=== PATIENT | male | born 1955 | race Caucasian/White ===

== ENCOUNTER 2019-03-19 11:55 | Inpatient (IN) | payer BC ==
[~2019-03-19] VITALS: Ht 175.3 cm; Wt 122.7 kg
[2019-04-03] VITALS (13 sets, daily range): BP systolic 114–144; BP diastolic 64–83; PULSE 86–102; TEMP 97.9–98.8
[2019-04-03] MEDS ORDERED: COZAAR 50MG50 MG/TAB PO (06:44)
[2019-04-03] MEDS ORDERED: ASPIRIN 81M81 MG/TA2 PO (06:44)
[2019-04-03] MEDS ORDERED: ZOCOR 80MG80 MG PO (06:44)
--- NOTE | 2019-04-03 11:05 | NUR ---
Patient up from OR. Sleepy, arouses to voice and touch. Spouse at bedside. Lap sites x 5 with bandaids, CDI. Low transverse with gauze is CDI. Patient denies pain at this time. Tolerating liquids without nausea. Denies further needs at this time. Will continue to monitor.
--- NOTE | 2019-04-03 18:33 | NUR ---
Patient doing well today. Has been up to recliner most of the afternoon. Tolerating oral intake without nausea. Denies pain at this time. remains at bedside. Denies further needs at this time.
--- NOTE | 2019-04-03 20:15 | NUR ---
Patient up in chair at bedside, wants to take a walk. Supervised ambulation in hallway around the surgical unit and down to medical unit and back to bed. Gait steady. Has sanderson to BSD with yellow urine noted. Has IV SL to left forearm without redness or swelling. Denies pain. Has lap sites x4 with bandaids and one small transverse incision to lower abdomen. Sites are dry. Has not passed any gas at this time.
[2019-04-04 04:00] VITALS: BP 131/76; PULSE 77; TEMP 97.5
[2019-04-04 05:52] LABS: BASO % 0.1 % (0.0-2.0); GRAN # 7.7 (1.4-6.5); GRAN % 79.7 % (42.2-75.2); HEMATOCRIT 38.4 % (42.0-52.0); HEMOGLOBIN 12.7 g/dl (13.5-18.0); LYMPH % 10.1 % (20.0-51.0); MEAN CELL VOLUME 93 fl (80.0-100.0); MEAN CORPUSCULAR HEMOGLOBIN 31 pg (27.0-31.0); MEAN CORPUSCULAR HGB CONC 33 g/dl (33.0-37.0); MEAN PLATELET VOLUME 9.5 fl (7.4-10.4); MONO # 0.9 (0.1-0.6); MONO % 9.6 % (1.7-9.3); PLATELET COUNT 167 K/mm3 (130-400); RED BLOOD COUNT 4.15 M/mm3 (4.20-5.60); REDCELL DISTRIBUTION WIDTH-CV 13.2 % (11.5-14.5)
--- NOTE | 2019-04-04 06:00 | NUR ---
Patient reports resting well, no complaints of pain refers discomfort as "soreness". Chen with good urine output this shift. Has not passed gas at this time.
[2019-04-04 06:02] LABS: CALCIUM 9.1 mg/dL (8.4-10.2); CREATININE, serum 1.22 (0.66-1.25); POTASSIUM 4.6 mmol/L (3.4-5.0)
[2019-04-04 08:26] VITALS: BP 140/80; PULSE 74; TEMP 97.8
--- NOTE | 2019-04-04 08:40 | NUR ---
Patient in bed resting. Alert and oriented x 3. Shift assessment complete. Chen to dependent drainage with clear yellow urine present in bag. Lap sites with bandaids are CDI. Low transverse with gauze also CDI. Denies pain at this time. Denies further needs at this time
--- NOTE | 2019-04-04 09:55 | NUR ---
Initial visit; Patient thanked Roving Technician for looking in on him and offering God's blessings.
--- NOTE | 2019-04-04 10:41 | NUR ---
Discontinued sanderson catheter; Aspirated 10 ml of fluid from balloon. Tolerated procedure well. Denies further needs at this time
--- NOTE | 2019-04-04 10:43 | NUR ---
Patient up ambulating in halls independently. Steady gait. Voiding without difficulty.
[2019-04-04 11:50] VITALS: BP 151/90; PULSE 80; TEMP 97.9
--- NOTE | 2019-04-04 15:11 | NUR ---
Patient states that he has had 4x bloody stools, patient flushed before able to visualize. Patient to call nursing staff if he has another bloody stool.
[2019-04-04 15:53] VITALS: BP 129/79; PULSE 83; TEMP 97.8
--- NOTE | 2019-04-04 16:08 | NUR ---
JUANITO met with the patient, patient's (Pamela), and a friend to discuss discharge plan. The patient lives in [place] with his . He reports independence with ADLs and does not have any DME. The patient's PCP is Dr. Krishan Nelson, but he will be retiring and the patient will be switched to Dr. Barr on April 11. He receives his medications at the [facility] and he reports no difficulties obtaining his meds. The patient does not have advanced directives in EMR and he was not interested in completing one at this time. The patient plans to return home with his upon discharge. No additional needs at this time.
--- NOTE | 2019-04-04 18:33 | NUR ---
Patient has done well today. Independent in room. Has been up ambulating in halls throughout the day. States he has no longer had any bloody stools. Denies pain or further needs at this time. Will report off to hydrographical technical officer.
--- NOTE | 2019-04-04 19:14 | NUR ---
Contacted Dr. Marino Patient states he has had 6 bloody stools today. Nurse finally able to visualize most recent BM. Appears dark red blood no BM. Patient remains asymptomatic. VSS. Per Dr. Marino check H&H in morning. no new orders.
[2019-04-04 19:31] VITALS: BP 121/67; PULSE 84; TEMP 98.2
[2019-04-04 23:40] VITALS: BP 129/74; PULSE 83; TEMP 98.6
--- NOTE | 2019-04-05 00:46 | NUR ---
Patient educated to continue to allow staff to visualize bowel movements. Also educated on alerting staff if he started to feel light headed or dizzy. Blood pressure remains WNL. Denies any light headedness or dizziness. Patient had another large dark red bloody stool. Will continue to monitor patient.
[2019-04-05 04:35] VITALS: BP 121/75; PULSE 83; TEMP 98.2
--- NOTE | 2019-04-05 04:38 | NUR ---
Patient noted to have another large dark red liquid bowel movement. Blood pressure WNL. Denies dizziness or lightheadedness. Will continue to monitor.
[2019-04-05 05:34] LABS: HEMATOCRIT 33.7 % (42.0-52.0); HEMOGLOBIN 11.3 g/dl (13.5-18.0)
[2019-04-05 08:21] VITALS: BP 123/82; PULSE 72; TEMP 97.7
--- NOTE | 2019-04-05 10:30 | NUR ---
Patient has had 2 liquid dark red stools, there was few tiny clots noted in the last bowel movment. Patient denies pain and nausea. Encouraged patient to walk in the hallways today. He is eating and drinking without issues. His is at bedside. No other changes at this time. Call ruth ann love.
--- NOTE | 2019-04-05 11:43 | NUR ---
Initial visit; Patient thanked Head Screen Worker for offering encouragement and God's blessings.
[2019-04-05 13:06] VITALS: BP 119/73; PULSE 77; TEMP 98.1
[2019-04-05 16:06] LABS: HEMATOCRIT 33.6 % (42.0-52.0)
--- NOTE | 2019-04-05 16:30 | NUR ---
Patients HGB is back, no major changes noted. It went from 11.3 this morning to 11. Attempted to call Dr Marino as he requested, he did not answer. Left a voicemail to call back. No other changes at this time. Call light within reach. No other changes at this time. Call light within reach.
[2019-04-05 17:34] VITALS: BP 128/73; PULSE 79; TEMP 97.7
--- NOTE | 2019-04-05 18:30 | NUR ---
Patient is discharging home. Discharge instructions discussed with patient. No questions verbalized. INT discontinued. Explained he has a follow up appointment on Monday with Dr Marino. Explained to call the office if the bloody stools increase. Patient has not had any dark red stools since before noon. Copies of discharge instructions sent with patient. Belongings packed up and sent with patient. Explained he has a script for oxycodone to get filled and that he has to take it to the pharmacy to [facility]. Patient walked out via wheel chair by Sandra PERRY. is here to drive patient home.
== END 2019-04-05 18:30 | disposition home or self-care (01) | DRG 331 ==
LOC: SURG 04-03 05:37 → INPTSU 04-03 05:37 → SURG 04-03 07:30 → JCC 04-03 07:30 → SURG 04-03 11:31
PROVIDERS: ADMIT Surgery
PROC: 8E0W4CZ Robotic Assisted Procedure of Trunk Region, Percutaneous Endoscopic Approach (ICD-10-PCS; 2019-04-03)
PROC: 0DTF0ZZ Resection of Right Large Intestine, Open Approach (ICD-10-PCS; principal; 2019-04-03 07:30)
DX: D12.0 Benign neoplasm of cecum (principal); I25.2 Old myocardial infarction; I10 Essential (primary) hypertension; Z95.5 Presence of coronary angioplasty implant and graft; E66.9 Obesity, unspecified; E78.00 Pure hypercholesterolemia, unspecified; Z68.39 Body mass index [BMI] 39.0-39.9, adult
CPT/HCPCS: A4314; A9284; J0690; J1100; J1650; J2405; J2704; J7120

== ENCOUNTER → 2019-03-26 | Outpatient (CLI) | payer BC | LOC: COL.RAD 09:58 | DX: R91.1 Solitary pulmonary nodule (principal) ==

== ENCOUNTER → 2019-07-11 | Outpatient (CLI) | payer BC ==
[~2019-07-11] MED LIST: ASPIRIN 81M81 MG/TA2 PO; COZAAR 50MG50 MG/TAB PO; ZOCOR 80MG80 MG PO
== END ==
LOC: COL.RAD 14:11
DX: N20.0 Calculus of kidney (principal); R91.1 Solitary pulmonary nodule